=== PATIENT | male | born 2000 | race Hispanic/Latino ===

== ENCOUNTER 2020-11-01 16:29 | Emergency (ER) | payer OTHER ==
[2020-11-01 17:18] LABS: Actual Bicarbonate (HCO3v) 27 mEq/L (22-28); Base Excess 1.5 mEq/L (-2.0 to +3.0); Calcium, Ionized (venous) 1.17 mmol/L (1.16-1.32); Chloride (VBG) 95 mmol/L (98-106); Hemoglobin (Hb) 17.8 g/dL (13.2-17.3); Potassium (VBG) 4.29 mmol/L (3.70-5.30); Puncture Site Other Site; Sodium 133.5 mmol/L (133-146)
[2020-11-01 17:51] LABS: #Eosinphils 0.2 10x3/uL (0.0-0.5); #Monocytes 0.8 10x3/uL (0.0-1.1); #Neutrophils 3.2 10x3/uL (1.5-8.4); %Basophils 0.5 % (0.0-2.0); %Eosinophils 3.7 % (0.0-6.0); %Lymphocytes 25.2 % (18.0-47.0); %Monocytes 14.7 % (0.0-10.0); %Neutrophils 55.2 % (40.0-75.0); Hemoglobin 16.6 g/dL (13.5-17.5); Mean Corpuscular HGB CONC 36.2 g/dL (32.0-36.0); Mean Corpuscular Hemoglobin 31.3 pg (27.0-33.0); Mean Corpuscular Volume 86.3 fl (81.2-95.1); Mean Platelet Volume 10.5 fl (7.4-10.4); Platelet Count 232 10x3/uL (150-450); RBC Distribution Width 11.8 % (11.5-14.5); Red Blood Cell (RBC) Count 5.31 10x6/uL (4.32-5.72); White Blood Cell (WBC) Count 5.7 10x3/uL (3.5-10.5)
[2020-11-01 18:07] LABS: ALT (SGPT) 37 U/L (8-55); AST (SGOT) 24 U/L (5-34); Albumin 4.2 g/dL (3.5-5.0); Alkaline Phosphatase 109 U/L (50-130); Anion Gap 15 mmol/L (10-20); BUN (Urea Nitrogen) 9 mg/dL (8.9-20.6); Bilirubin, Total 1.2 mg/dL (0.2-1.2); Calc. Creatinine Clearance 0 mL/min (70-130); Calcium 9.3 mg/dL (7.8-10.44); Carbon Dioxide 24 mmol/L (22-29); Chloride 97 mmol/L (98-107); Globulin 3.4 g/dL (2.4-3.5); Glucose 512 mg/dL (70-105); Protein, Total 7.6 g/dL (6.0-8.3); Sodium 132 mmol/L (136-145)
[2020-11-01] MEDS ORDERED: Insulin Regular 300 UNITS/3 ML VIAL ONE (18:28)
[2020-11-01 18:33] LABS: Bilirubin Neg (Negative); Blood, Urine Negative (Negative); Clarity Clear (Clear); Glucose, Urine (Dipstick) >=1000 mg/dL (Negative); Ketone, Urine Negative (Negative); Leukocyte 25 (Negative); Nitrite Negative (Negative); Protein, Urine (Dipstick) Negative (Neg-Trace); Urobilinogen Normal mg/dL (Less than 2)
[2020-11-01 19:06] LABS: RBC/HPF 0-3 HPF (0-3); WBC/HPF 0-3 HPF (0-3)
[2020-11-01 19:07] LABS: Squamous Epithelial 0-3 HPF (0-3)
[2020-11-01 19:08] LABS: Bacteria/HPF Rare-Few HPF (None Seen)
== END 2020-11-01 19:29 | disposition home or self-care (01) ==
LOC: CSHERS 16:29
DX: E11.65 Type 2 diabetes mellitus with hyperglycemia (principal)
CPT/HCPCS: 36415; 36416; 80053; 81003; 81015; 82010; 82805; 85025; 96374; J1815

== ENCOUNTER 2021-06-30 16:26 | Observation (INO) | payer OTHER ==
[2021-06-30] MEDS ORDERED: Ketorolac Tromethamine 30 MG/ML VIAL ONE (16:58)
[2021-06-30] MEDS ORDERED: Acetaminophen 500 MG TAB ONE (16:58)
[2021-06-30 17:25] LABS: #Eosinphils 0.1 10x3/uL (0.0-0.5); #Monocytes 1.3 10x3/uL (0.0-1.1); %Basophils 0.4 % (0.0-2.0); %Eosinophils 1.3 % (0.0-6.0); %Lymphocytes 8.9 % (18.0-47.0); %Monocytes 13.8 % (0.0-10.0); %Neutrophils 75.2 % (40.0-75.0); Hemoglobin 17.1 g/dL (13.5-17.5); Mean Corpuscular HGB CONC 35.5 g/dL (32.0-36.0); Mean Corpuscular Hemoglobin 31.2 pg (27.0-33.0); Mean Platelet Volume 10.5 fl (7.4-10.4); Platelet Count 264 10x3/uL (150-450); RBC Distribution Width 11.9 % (11.5-14.5); Red Blood Cell (RBC) Count 5.48 10x6/uL (4.32-5.72); White Blood Cell (WBC) Count 9.3 10x3/uL (3.5-10.5)
[2021-06-30 17:29] LABS: Bilirubin Neg (Negative); Blood, Urine Negative (Negative); Clarity Clear (Clear); Glucose, Urine (Dipstick) >=1000 mg/dL (Negative); Ketone, Urine Negative (Negative); Leukocyte 100 (Negative); Nitrite Negative (Negative); Protein, Urine (Dipstick) 15 mg/dl (Neg-Trace); Urobilinogen Normal mg/dL (Less than 2)
[2021-06-30 17:39] LABS: RBC/HPF 0-3 HPF (0-3); Squamous Epithelial 0-3 HPF (0-3)
[2021-06-30 17:40] LABS: Bacteria/HPF Rare-Few HPF (None Seen)
[2021-06-30 17:44] LABS: ALT (SGPT) 65 U/L (8-55); AST (SGOT) 33 U/L (5-34); Albumin 4.6 g/dL (3.5-5.0); Alkaline Phosphatase 95 U/L (50-130); Anion Gap 17 mmol/L (10-20); BUN (Urea Nitrogen) 9 mg/dL (8.9-20.6); Bilirubin, Total 1.5 mg/dL (0.2-1.2); Calc. Creatinine Clearance 0 mL/min (70-130); Calcium 9.4 mg/dL (7.8-10.44); Carbon Dioxide 23 mmol/L (22-29); Chloride 98 mmol/L (98-107); Globulin 3.2 g/dL (2.4-3.5); Glucose 476 mg/dL (70-105); Magnesium 1.9 mg/dL (1.7-2.2); Potassium 4.1 mmol/L (3.5-5.1); Protein, Total 7.8 g/dL (6.0-8.3); Sodium 134 mmol/L (136-145)
[2021-06-30 18:04] LABS: SARS-CoV-2 NAA Rapid Test Not Detected (NotDetected)
[2021-06-30] MEDS ORDERED: cefTRIAXone\\ROCEPHIN 2 GM VIAL ONE (19:40)
[2021-06-30 21:02] VITALS: BMI 38.3
[2021-06-30] MEDS ORDERED: Acetaminophen 325 MG TAB PO PRN (21:13)
[2021-06-30] MEDS ORDERED: Azithromycin 500 MG in Sodium Chloride 0.9% 250 ML 250 ML IVPB SCH (21:15)
[2021-06-30] MEDS ORDERED: HumaLOG 300 UNITS/3 ML VIAL SC SCH (21:30)
[2021-06-30] MEDS ORDERED: FLU VACC QS2021-22(6MOS UP)/PF 60 MCG/0.5 ML SYRINGE IM ONE (21:45)
[2021-06-30 22:10] LABS: HIV (1/2) Antibody/Antigen Non-Reactive (NonReactive)
[2021-06-30] MEDS: Sodium Chloride 0.9% 1,000 ML IV SCH (22:12)
[2021-07-01] MEDS ORDERED: HumaLOG 300 UNITS/3 ML VIAL SC SCH ×2 (01:30→04:00)
[2021-07-01 04:17] LABS: Legionella Urinary Ag Negative (Negative); Strep pneumo Urine Ag NEGATIVE (NEGATIVE)
[2021-07-01 04:37] LABS: Hemoglobin 15.1 g/dL (13.5-17.5); Mean Corpuscular HGB CONC 35.2 g/dL (32.0-36.0); Mean Corpuscular Hemoglobin 31.7 pg (27.0-33.0); Mean Corpuscular Volume 90.1 fl (81.2-95.1); Mean Platelet Volume 10.3 fl (7.4-10.4); Platelet Count 222 10x3/uL (150-450); RBC Distribution Width 12.1 % (11.5-14.5); Red Blood Cell (RBC) Count 4.76 10x6/uL (4.32-5.72); White Blood Cell (WBC) Count 4.8 10x3/uL (3.5-10.5)
[2021-07-01 04:56] LABS: Anion Gap 10 mmol/L (10-20); Calc. Creatinine Clearance 201 mL/min (70-130); Calcium 8.7 mg/dL (7.8-10.44); Carbon Dioxide 25 mmol/L (22-29); Chloride 109 mmol/L (98-107); Glucose 244 mg/dL (70-105); Magnesium 1.9 mg/dL (1.7-2.2); Potassium 3.6 mmol/L (3.5-5.1); Sodium 140 mmol/L (136-145)
[2021-07-01 04:57] LABS: MDiff Complete? YES
[2021-07-01 05:01] LABS: Band 4 % (5-11); Eosinophils 3 % (0-10); Lymphocytes 34 % (28-48); Monocytes 16 % (0-4); Myelocyte 1 % (0-0); Neutrophil 36 % (31-61); Reactive Lymphocytes 5 % (0-10)
[2021-07-01 05:02] LABS: Platelet Morphology Comment Appears Adequate
[2021-07-01 05:03] LABS: RBC Morphology Normal
[2021-07-01 05:04] LABS: BUN (Urea Nitrogen) 10 mg/dL (8.9-20.6)
[2021-07-01] MEDS ORDERED: Potassium Chloride 20 MEQ TAB PO SCH (05:15)
[2021-07-01] MEDS: Sodium Chloride 0.9% 1,000 ML IV SCH (06:58)
[2021-07-01] MEDS ORDERED: metFORMIN 500 MG TAB PO SCH ×2 (07:30→10:30)
[2021-07-01] MEDS ORDERED: Enoxaparin Sodium 40 MG/0.4 ML SYRINGE SC SCH (09:00)
[2021-07-01] MEDS ORDERED: Dextrose 5% in Water 1,000 ML IV PRN (09:14)
[2021-07-01] MEDS ORDERED: HumaLOG 300 UNITS/3 ML VIAL SC PRN (09:14)
[2021-07-01] MEDS ORDERED: Dextrose 50% Abboject 50 ML SYRINGE SLOW IVP PRN (09:14)
[2021-07-01 12:58] LABS: Hemoglobin A1c 11.9 % (4.0-6.0)
[2021-07-01 15:49] VITALS: BP 123/64; TEMP 97.3
[2021-07-01] MEDS ORDERED: cefTRIAXone\\ROCEPHIN 1 GM in Sodium Chloride 0.9% 100 ML IVPB SCH (20:00)
== END 2021-07-01 17:58 | disposition home or self-care (01) ==
LOC: CSHERS 16:26 → INTOOBSV 16:27 → CSHTELE 16:27
PROVIDERS: ADMIT Family Medicine; ATTEND Internal Medicine
DX: J22 Unspecified acute lower respiratory infection (principal); E86.9 Volume depletion, unspecified; E11.65 Type 2 diabetes mellitus with hyperglycemia; R82.81 Pyuria; E66.9 Obesity, unspecified; Z68.35 Body mass index [BMI] 35.0-35.9, adult; Z20.822 Contact with and (suspected) exposure to COVID-19
CPT/HCPCS: 0240U; 36415; 36416; 71045; 80048; 80053; 81003; 81015; 83036; 83605; 83735; 84443; 84484; 85025; 87040; 87081; 87086; 87389; 87430; 87449; 87491; 87591; 87633; 87899; 93005; 94760; 96365; 96372; 96375; G0378; J0696; J1650; J1815; J1885; J7050

== ENCOUNTER 2025-02-24 21:49 | Emergency (ER) | payer OTHER ==
[2025-02-24] MEDS ORDERED: Ibuprofen 200 MG TAB ONE (23:02)
[2025-02-24] MEDS ORDERED: Acetaminophen 500 MG TAB ONE (23:02)
== END 2025-02-25 00:20 | disposition home or self-care (01) ==
LOC: CSHERS 21:49
DX: S63.501A Unspecified sprain of right wrist, initial encounter (principal); E11.9 Type 2 diabetes mellitus without complications; W01.0XXA Fall on same level from slipping, tripping and stumbling without subsequent striking against object, initial encounter
CPT/HCPCS: 99283

== ENCOUNTER 2025-03-18 19:47 | Emergency (ER) | payer OTHER | END 2025-03-18 23:05 | disposition home or self-care (01) | LOC: CSHERS 19:47 | DX: S93.401A Sprain of unspecified ligament of right ankle, initial encounter (principal); E11.9 Type 2 diabetes mellitus without complications; W19.XXXA Unspecified fall, initial encounter ==